=== PATIENT | female | born 1990 | race Caucasian/White ===

== ENCOUNTER 2017-09-11 17:44 | Emergency (ER) | payer MEDICAID, OTHER ==
--- NOTE | 2017-09-11 18:14 | EDPHY ---
H & P Time Seen by Provider: 09/11/17 17:49 HPI/ROS: CHIEF COMPLAINT: Seizure HISTORY OF PRESENT ILLNESS: Patient is a 27-year-old female who had a witnessed seizure. Patient states that she has had approximately 5 seizures in the past. She has been followed by neurologist. She had a previous negative MRI and EEG. She is not currently on any seizure medication. 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 She currently complains of a headache. She states this is typical after having seizure. She also bit her tongue. Bleeding is controlled. She has no neck or back pain. No chest pain or shortness of breath. No abdominal pain. No recent alcohol or drugs. REVIEW OF SYSTEMS: My complete review of systems is negative except as mentioned in the HPI. Past Medical/Surgical History: Seizures Social history: The patient denies drugs or alcohol Smoking Status: Never smoked Physical Exam: Vitals noted GENERAL: Well-appearing, in no acute distress, alert. HEENT: Eyes normal to inspection, normal pharynx, no signs of dehydration. Patient has an abrasion on the tip of her tongue. No active bleeding or laceration. NECK: No thyromegaly, no lymphadenopathy, supple. Nexus negative RESPIRATORY: Clear to auscultation bilaterally, no rales, rhonchi or wheezing. CVS: Regular rate and rhythm, no rubs, murmurs, or gallops. ABDOMEN: Soft, nontender, nondistended, no organomegaly. BACK: Normal to inspection, no CVA tenderness. SKIN: Normal color, no rash, warm, dry. No pallor. EXTREMITIES: No pedal edema, no calf tenderness, no Homans sign or cords, no joint swelling. NEURO/PSYCH: Higher functions: Alert and Oriented x3. Normal speech and cognition. Normal mood and affect. Cranial nerves: Normal as tested. Cerebellar: Normal as tested. Good finger to nose, good [id number], normal gait. Peripheral exam: Normal motor exam. Normal sensation. Normal reflexes. Constitutional: Initial Vital Signs Temperature (C) 36.5 C 09/11/17 17:58 Heart Rate 87 09/11/17 17:58 Respiratory Rate 20 09/11/17 17:58 Blood Pressure 141/71 H 09/11/17 17:58 O2 Sat (%) 96 09/11/17 17:58 O2 Delivery Mode Room Air Allergies/Adverse Reactions: Sulfa (Sulfonamide Antibiotics) Allergy (Verified 12/12/15 13:58) Home Medications: Medication Instructions Recorded NK [No Known Home Meds] 12/12/15 Medical Decision Making ED Course/Re-evaluation: In the emergency department I discussed treatment options with the patient. She does not want laboratory studies her head CT at this time. I discussed the pros and cons of this. I rechecked the patient while here. She was stable throughout her stay. She had no cyst new seizure activity. No focal neurologic deficits. 1951: The patient was doing well. Her headache had improved. She had no focal neurologic deficits. She felt comfortable with discharge. She was given warnings prior to leaving. Differential Diagnosis: My differential includes but is not limited to seizure, epilepsy, subarachnoid hemorrhage, subdural hematoma, epidural hematoma, spinal injury Departure - Departure Disposition: Home, Routine, Self-Care Clinical Impression: Seizure disorder Condition: Good Instructions: Recurrent Seizures in Adults (ED) Additional Instructions: Return with increasing headache, weakness, numbness or any other concerns. Referrals: Curry Ward MD [Medical Doctor] - 2-3 days, if not improved
[2017-09-11 18:17] VITALS: RESP 18
[2017-09-11 20:28] VITALS: BP 115/71; PULSE 72; TEMP 97.9; O2SAT 96
== END 2017-09-11 20:28 | disposition home or self-care (01) ==
LOC: EDUNIT#
DX: G40.909 Epilepsy, unspecified, not intractable, without status epilepticus (principal)